=== PATIENT | female | born 1940 | race Caucasian/White ===

== ENCOUNTER → 2020-04-24 | Outpatient (CLI) | payer OTHER ==
[~2020-04-24] MED LIST: ACET650S3 PR; ALLO100T PO; ARIM1TAB5 PO; AROM25TA PO; ASPI81CH49 PO; BACT800T5 PO; BENA25CA4 PO; CALCCAP4 PO; CALCD50TA; CALCTAB28 PO; CELE1CAP9 PO; CETI10CH PO; FAMO40TA3 PO; FURO40TA2 PO; HYDR50TA70 PO; IBRA125C PO; IBUP200T45 PO; KISQ1PAK3 PO; LEVO88TA24 PO; LORT5TAB PO; MAGN400C2 PO; MAGN400T3 PO; PALB125T PO; POTA1TAB14 PO; PRED20TA PO; PRED5PAK PO; RANI-397 PO; SELE200C PO; SELE200T15 PO; SM LTAB5 PO; TAMO20TA8 PO; VITA-199 PO; XARE20TA PO
== END ==
LOC: M ONCR 10:29
PROVIDERS: ATTEND General Practice
DX: C79.2 Secondary malignant neoplasm of skin (principal); C50.911 Malignant neoplasm of unspecified site of right female breast

== ENCOUNTER → 2020-07-30 | Outpatient (CLI) | payer OTHER ==
[~2020-07-30] MED LIST changes: +CYAN500T14 PO; +FAMO20TA PO; +LIDOCAINE 1% MDV 20ML VIAL As Ordered ONE; +MIDAZOLAM INJ 2MG/2ML VIAL (J2250 PER 1MG) As Ordered ONE; +ONDA8TAB10 PO; +PROC10TA4 PO; +ceFAZolin 1GM VIAL (J0690 PER 500MG) As Ordered ONE; +diphenhydrAMINE 50MG/ML VIAL (J1200) As Ordered ONE; +fentaNYL 100 MCG/2 ML INJECTION (J3010) As Ordered ONE
--- NOTE | 2020-07-30 12:31 | IRHP ---
[facility] IR Pre-Procedure H & P General Date of Service: Jul 28, 2020 Procedure: Same Day Surgery Interval History and Physical I have seen the patient and reviewed last H & P performed within 30 days. There is no significant interval change. History of Present Illness Chief Complaint The patient is a 80-year-old female admitted with a reason for visit of Metastatic Breast Ca. PRE-PROCEDURE DIAGNOSIS: right sided breast cancer HEART: normal rate. LUNGS: normal breathing at rest. ASA Classification ASA Classification: III-Severe systemic dis. Mallampati Score: II NPO: Yes Problems with prior sedation: No Obstructive Sleep Apnea: No Plan moderate sedation Allergies Coded Allergies: Quinolones (Verified Allergy, Unknown, 01/28/19) cefadroxil (Verified Allergy, Unknown, 01/28/19) codeine (Verified Allergy, Unknown, 01/28/19) nitrofurantoin (Verified Allergy, Unknown, 01/28/19) Home Medications Scheduled Cyanocobalamin (Vitamin B-12) (Vitamin B-12), 1,000 MCG PO DAILY, (Reported) Famotidine (Famotidine), 20 MG PO PRN, (Reported) Ibuprofen (Ibu-200), 400 MG PO DAILYPRN, (Reported) Levothyroxine Sodium (Levoxyl), 88 MCG PO DAILY, (Reported) Magnesium Oxide (Magnesium), 400 MG PO DAILY, (Reported) Potassium Chloride (Potassium Chloride), 20 MEQ PO DAILY, (Reported) Rivaroxaban (Xarelto), 20 MG PO QPM, (Reported) Scheduled PRN Furosemide (Furosemide), 1 TAB PO DAILY PRN for NEEDED, (Reported) Miscellaneous Medications Calcium Carbonate/Vitamin D3 (Calcium 600 + Vit D 400 Softgl), 1 CAP PO, (Reported) Discontinued Medications Cetirizine HCl (Cetirizine HCl), 1 TAB PO BID, (Reported) Discontinued Reason: Pt states not taking Famotidine (Famotidine), 40 MG PO BID, (Reported) Discontinued Reason: Re-entering as new Hydroxyzine HCl (Hydroxyzine HCl), 1 TAB PO Q4HP, (Reported) Discontinued Reason: Pt states not taking Loratadine (Loratadine), 1 TAB PO DAILY, (Reported) Discontinued Reason: Pt states not taking Magnesium Oxide (Magnesium Oxide), 1 TAB PO DAILY, (Reported) Discontinued Reason: Pt states not taking Ondansetron HCl (Ondansetron HCl), 8 MG PO Q8H PRN for NAUSEA OR VOMITING Discontinued Reason: Pt states not taking Prochlorperazine Maleate (Prochlorperazine Maleate), 10 MG PO Q8H PRN for NAUSEA OR VOMITING Discontinued Reason: Pt states not taking KASEY CASTANO MD Jul 30, 2020 12:31
[2020-07-30 14:25] VITALS: BP 132/70
--- NOTE | 2020-07-31 12:15 | POST-OPPD ---
Postoperative Procedure Note Date Of Procedure: Jul 30, 2020 Time Of Procedure: 16:00 IR ultrasound and fluoroscopy guided port placement. IR Ultrasound of the neck. IR Moderate sedation. Clinical indication: Right-sided breast cancer and prior right axillary dissection. Physician: Dr. Richmond. Procedure: The patient was advised of the benefits, risks, and alternatives of the procedure and informed consent was obtained. A time-out was performed with verification of the patient's name, MRN, site of procedure and type of procedure to be performed. The patient was positioned in the supine position on the angiographic table. The site was prepped and draped in the usual sterile fashion. Moderate sedation was performed by the physician including the presence of an independent trained RN who assisted and monitored the patient's level of consciousness and physiologic status. Following the administration of fentanyl and Versed , the physician spent 45 minutes of continuous face to face time with the patient. Ultrasound of the left neck reveals a small internal jugular vein. A pilot boat operator radiograph reveals no gross abnormality. The neck and anterior chest wall were anesthetized with lidocaine. The left internal jugular vein was accessed using a microintroducer needle under ultrasound guidance, via a lateral approach. An 018 wire could not be advanced centrally. The left internal jugular vein could not be cannulated. The procedure was aborted. As patient had right sided breast cancer with axillary surgery, right sided port is not an option. The patient tolerated the procedure well and was returned to the PRU in stable condition. Estimated blood loss: <5 ml. Complications: None. Conclusion: 1. Ultrasound left neck demonstrates small left internal jugular vein. 2. Unsuccessful left internal jugular vein canalization for port placement. 3. Right-sided port is not an option due to prior right sided breast cancer and axillary surgery. Therefore I have referred the patient for a left arm PICC line for treatment.. Thank you for this referral. Cc KASEY Sky MD Jul 31, 2020 12:15
== END ==
LOC: M IRPRO 11:24
PROVIDERS: ATTEND Radiology Diagnostic Radiology
DX: C50.911 Malignant neoplasm of unspecified site of right female breast (principal)
CPT/HCPCS: 36561; 99152; 99153; C1769; C1894; J0690; J1642; J1644; J2250; J3010

== ENCOUNTER → 2020-07-31 | Outpatient (CLI) | payer OTHER ==
[~2020-07-31] MED LIST changes: -MIDAZOLAM INJ 2MG/2ML VIAL (J2250 PER 1MG) As Ordered ONE; -ceFAZolin 1GM VIAL (J0690 PER 500MG) As Ordered ONE; -diphenhydrAMINE 50MG/ML VIAL (J1200) As Ordered ONE; -fentaNYL 100 MCG/2 ML INJECTION (J3010) As Ordered ONE
[2020-07-31 12:40] VITALS: BP 149/68
--- NOTE | 2020-07-31 14:44 | REP ---
PROCEDURE NAME: PICC LINE INSERTION W/SITERITE CLINICAL INFORMATION: NO VENOUS ACCESS PICC LINES. COMPARISON: None. PROCEDURE DESCRIPTION: The procedure was performed by FAITH Gentile, under the direct supervision of Dr. Sandhu. The risks and benefits of the procedure were explained to the patient and an informed consent was obtained both verbally and written. Directly prior to the start of the procedure a formal time-out was completed in the procedure room. The left basilic vein was localized using ultrasound guidance. The skin was prepped and draped in sterile fashion. Two mL of 1% lidocaine 10 mg/mL was used as a local anesthetic. Using ultrasound guidance the left basilic vein was cannulated, and a 0.018 guidewire was inserted and advanced to the level of SVC using fluoroscopic guidance. The needle was removed and a 5.5 Cypriot dilator and peel-away sheath was inserted over the guidewire. A 5.5 Cypriot dual lumen catheter was cut to a length of 45 cm. The dilator was removed and the catheter was inserted over the guidewire with the tip ending at the level of the SVC. The peel-away sheath was removed and the catheter was flushed with heparinized saline as per hospital protocol. The catheter was affixed to the skin and a sterile dressing was applied. The patient tolerated the procedure well and there were no immediate complications. CONCLUSION: PICC line insertion into the left basilic vein. 0.1 minutes of fluoroscopy time was utilized for this procedure. Some fluoroscopic images are performed with last image hold technology. These images require no additional radiation. <Electronically signed by Fouzia Collins > 07/31/20 1436 <Electronically signed by Mesfin Sandhu > 07/31/20 1449
== END ==
LOC: M IRPRO 11:26
PROVIDERS: ATTEND Specialist
DX: C50.411 Malignant neoplasm of upper-outer quadrant of right female breast (principal); C79.2 Secondary malignant neoplasm of skin
CPT/HCPCS: 36571; 76937; C1751; J1642; J1644

== ENCOUNTER → 2020-08-03 | Outpatient (CLI) | payer OTHER ==
[~2020-08-03] MED LIST changes: -LIDOCAINE 1% MDV 20ML VIAL As Ordered ONE
[2020-08-03 13:32] VITALS: BP 175/100
== END ==
LOC: M IRPRO 13:30
PROVIDERS: ATTEND Specialist
DX: C50.919 Malignant neoplasm of unspecified site of unspecified female breast (principal)

== ENCOUNTER → 2021-11-16 | Outpatient (CLI) | payer BC ==
[~2021-11-16] MED LIST changes: +B-12100021 PO; +CO Q100C PO; +D 50CAP2 PO; +GABA-282; +HYDR-4571 PO; -IBUP200T45 PO; +IBUP200T46 PO; +LEVO75TA4 PO; +MAGN400T2 PO; -MAGN400T3 PO; +MAGN400T33 PO; +ONDA-83; +ONDA-84 PO; -ONDA8TAB10 PO; -PROC10TA4 PO; +PROC10TA5 PO; +[UNRECOGNIZED DRUG - OTHER] PO
== END ==
LOC: M ONCR 14:44
PROVIDERS: ATTEND General Practice
DX: C79.2 Secondary malignant neoplasm of skin (principal); C79.51 Secondary malignant neoplasm of bone; Z85.3 Personal history of malignant neoplasm of breast; Z88.1 Allergy status to other antibiotic agents; Z88.5 Allergy status to narcotic agent; Z88.8 Allergy status to other drugs, medicaments and biological substances

== ENCOUNTER 2021-11-19 13:56 | Outpatient (RCR) | payer BC | END 2021-11-25 | LOC: M ONCR 13:56 | PROVIDERS: ATTEND General Practice | DX: C79.51 Secondary malignant neoplasm of bone (principal); C79.2 Secondary malignant neoplasm of skin ==

== ENCOUNTER 2021-12-13 10:56 | Outpatient (RCR) | payer BC ==
[~2021-12-13 10:56] MED LIST changes: +CIPR-250 PO
[2021-12-28] MEDS ORDERED: TRIA1CR80 TOP (15:10)
== END 2021-12-25 ==
LOC: M ONCR 10:56
PROVIDERS: ATTEND General Practice
DX: C79.51 Secondary malignant neoplasm of bone (principal)

== ENCOUNTER → 2022-01-04 | Outpatient (CLI) | payer BC ==
[~2022-01-04] MED LIST changes: +EXEM25TA; +OXYC-517; +TRIA1CR80 TOP
== END ==
LOC: M ONCR 12:56
PROVIDERS: ATTEND General Practice
DX: C79.2 Secondary malignant neoplasm of skin (principal); L59.9 Disorder of the skin and subcutaneous tissue related to radiation, unspecified; Z92.3 Personal history of irradiation

== ENCOUNTER → 2022-01-11 | Outpatient (CLI) | payer BC | LOC: M ONCR 13:26 | PROVIDERS: ATTEND General Practice | DX: C79.2 Secondary malignant neoplasm of skin (principal) ==

== ENCOUNTER → 2022-01-25 | Outpatient (CLI) | payer BC ==
[~2022-01-25] MED LIST changes: -EXEM25TA; -OXYC-517
== END ==
LOC: M ONCR 13:11
PROVIDERS: ATTEND General Practice
DX: Z08 Encounter for follow-up examination after completed treatment for malignant neoplasm (principal); L76.82 Other postprocedural complications of skin and subcutaneous tissue; Z90.11 Acquired absence of right breast and nipple; Z92.3 Personal history of irradiation

== ENCOUNTER → 2022-02-08 | Outpatient (CLI) | payer BC | LOC: M ONCR 13:11 | PROVIDERS: ATTEND General Practice | DX: C79.51 Secondary malignant neoplasm of bone (principal); C79.2 Secondary malignant neoplasm of skin; L59.8 Other specified disorders of the skin and subcutaneous tissue related to radiation; Z92.3 Personal history of irradiation ==

== ENCOUNTER 2022-02-15 08:11 | Outpatient (RCR) | payer BC ==
[2022-02-23] MEDS ORDERED: EXEM25TA (13:28)
[2022-02-23] MEDS ORDERED: OXYC-517 (13:28)
== END 2022-02-24 ==
LOC: M ONCR 08:11
PROVIDERS: ATTEND General Practice
DX: C79.2 Secondary malignant neoplasm of skin (principal); C50.911 Malignant neoplasm of unspecified site of right female breast; Z79.899 Other long term (current) drug therapy; Z79.890 Hormone replacement therapy; Z88.8 Allergy status to other drugs, medicaments and biological substances; Z88.1 Allergy status to other antibiotic agents; Z88.5 Allergy status to narcotic agent; Z90.13 Acquired absence of bilateral breasts and nipples; Z98.890 Other specified postprocedural states

== ENCOUNTER 2022-03-16 09:35 | Outpatient (RCR) | payer BC ==
[~2022-03-16 09:35] MED LIST changes: +EXEM25TA; +OXYC-517
== END 2022-03-27 ==
LOC: M ONCR 09:35
PROVIDERS: ATTEND General Practice
DX: C79.2 Secondary malignant neoplasm of skin (principal); C79.51 Secondary malignant neoplasm of bone

== ENCOUNTER → 2022-04-01 | Outpatient (CLI) | payer BC ==
[~2022-04-01] MED LIST changes: +MIRT-62 PO; +ZOLP5TAB PO
== END ==
LOC: M ONCR 09:54
PROVIDERS: ATTEND General Practice
DX: L59.8 Other specified disorders of the skin and subcutaneous tissue related to radiation (principal)

== ENCOUNTER → 2022-05-03 | Outpatient (CLI) | payer BC ==
[~2022-05-03] MED LIST changes: +EXEM25TA PO
== END ==
LOC: M ONCR 10:44
PROVIDERS: ATTEND General Practice
DX: L59.8 Other specified disorders of the skin and subcutaneous tissue related to radiation (principal); R10.11 Right upper quadrant pain

== ENCOUNTER 2022-06-01 13:27 | Outpatient (CLI) | payer BC ==
[2022-06-01] MEDS ORDERED: SODIUM CHLORIDE 0.9% 1000ML IV ONE (14:35)
[2022-06-15] MEDS ORDERED: IBUP-1114 PO (13:39)
== END 2022-06-01 15:00 | disposition home or self-care (01) ==
LOC: M INFU 13:27
PROVIDERS: ATTEND Specialist
DX: C50.919 Malignant neoplasm of unspecified site of unspecified female breast (principal); Z88.1 Allergy status to other antibiotic agents; Z88.5 Allergy status to narcotic agent; Z88.8 Allergy status to other drugs, medicaments and biological substances
CPT/HCPCS: 96360; G0463

== ENCOUNTER 2022-06-28 10:17 | Inpatient (IN) | payer MEDICARE, BC ==
[~2022-06-28] VITALS: Ht 157.5 cm; Wt 84.3 kg
[~2022-06-28 10:17] MED LIST changes: -LEVO25TA5 PO
[2022-06-28 13:02] LABS: BASO # 0.1 10^3/uL (0.0-0.2); BASO % 1.1 % (0.0-1.0); EOS # 0.1 10^3/uL (0.0-0.5); EOS % 1.1 % (0.0-3.0); HEMATOCRIT 40.1 % (36.0-47.0); HEMOGLOBIN 13.1 g/dl (12.0-15.5); LYMPH # 1.4 10^3/uL (1.5-5.0); LYMPH % 22.1 % (24.0-44.0); MEAN CORPUSCULAR HEMOGLOBIN 32.2 pg (27.0-33.0); MEAN CORPUSCULAR HGB CONC 32.7 g/dl (32.0-36.5); MEAN CORPUSCULAR VOLUME 98.5 fl (80.0-96.0); MONO # 0.9 10^3/uL (0.0-0.8); MONO % 14.2 % (2.0-8.0); NEUTROPHILS # 3.6 10^3/uL (1.5-8.5); NEUTROPHILS % 57.7 % (36.0-66.0); PLATELET COUNT, AUTOMATED 152 10^3/uL (150-450); RED BLOOD COUNT 4.07 10^6/uL (4.00-5.40); WHITE BLOOD COUNT 6.3 10^3/uL (4.0-10.0)
[2022-06-28 13:37] LABS: ALBUMIN 3.8 GM/DL (3.2-5.2); BILIRUBIN,TOTAL 0.8 MG/DL (0.2-1.0); CALCIUM LEVEL 14.4 MG/DL (8.8-10.2); CREATININE FOR GFR 1.04 MG/DL (0.55-1.30); GLOMERULAR FILTRATION RATE 53.9 (>32); POTASSIUM SERUM 4.5 MEQ/L (3.5-5.1); TOTAL PROTEIN 7.4 GM/DL (6.4-8.2)
[2022-06-28] MEDS ORDERED: ONDANSETRON 4MG 2ML VIAL IV ONE (14:20)
[2022-06-28] MEDS ORDERED: MORPHINE 2 MG/ML 1ML VIAL IV ONE (14:20)
[2022-06-28] MEDS ORDERED: NS 1,000 ML IV ONE (14:20)
[2022-06-28] MEDS ORDERED: EXEM25TA PO (15:15)
[2022-06-28] MEDS ORDERED: HOME MED LIST COMPLETE! XX SCH ×2 (15:20→16:10)
[2022-06-28] MEDS ORDERED: LEVO25TA5 PO (16:07)
[2022-06-28 17:44] LABS: RSV AMPLIFICATION NEGATIVE (NEGATIVE)
[2022-06-28] MEDS ORDERED: ZOLEDRONIC ACID 4 MG in IV 1 EA IV ONE (18:00)
[2022-06-28 18:21] VITALS: BP 130/71
[2022-06-28] MEDS: MORPHINE 2 MG/ML 1ML VIAL IV PRN (18:29)
[2022-06-28] MEDS: NS 1,000 ML IV SCH (18:39)
[2022-06-28 19:44] VITALS: BP 145/70
[2022-06-28] MEDS: NORCO, ANEXSIA 5/325MG TABLET (HYDROcodone/ACETAMINOPHEN) PO PRN (21:09)
[2022-06-28 23:50] VITALS: BP 129/66
[2022-06-29] MEDS: MORPHINE 2 MG/ML 1ML VIAL IV PRN ×2 (01:25→22:21)
[2022-06-29 04:03] VITALS: BP 112/58
[2022-06-29] MEDS: NS 1,000 ML IV SCH ×4 (04:03→21:33)
[2022-06-29 05:57] LABS: HEMATOCRIT 31.7 % (36.0-47.0); MEAN CORPUSCULAR HGB CONC 32.5 g/dl (32.0-36.5); MEAN CORPUSCULAR VOLUME 98.4 fl (80.0-96.0); PLATELET COUNT, AUTOMATED 125 10^3/uL (150-450); RED BLOOD COUNT 3.22 10^6/uL (4.00-5.40); WHITE BLOOD COUNT 4.2 10^3/uL (4.0-10.0)
[2022-06-29 06:02] LABS: HEMOGLOBIN 10.3 g/dl (12.0-15.5)
[2022-06-29] MEDS ORDERED: FAMOTIDINE 20 MG TAB PO PRN (06:10)
[2022-06-29 06:29] LABS: BLOOD UREA NITROGEN 9 MG/DL (7-18); CALCIUM LEVEL 12.4 MG/DL (8.8-10.2); CARBON DIOXIDE LEVEL 25 MEQ/L (21-32); CHLORIDE LEVEL 105 MEQ/L (98-107); CREATININE FOR GFR 0.88 MG/DL (0.55-1.30); GLOMERULAR FILTRATION RATE > 60.0 (>32); GLUCOSE, FASTING 83 MG/DL (70-100); MAGNESIUM LEVEL 1.1 MG/DL (1.8-2.4); POTASSIUM SERUM 3.8 MEQ/L (3.5-5.1); SODIUM LEVEL 138 MEQ/L (136-145)
[2022-06-29] MEDS: LEVOTHYROXINE 50MCG TABLET (0.05MG) PO SCH (06:31)
[2022-06-29] MEDS ORDERED: FUROSEMIDE 40 MG TAB PO PRN (07:10)
[2022-06-29 07:35] VITALS: BP 119/62
[2022-06-29] MEDS: MAG SULF 1GM/100ML (MAG RUN) 1 GM in IV 1 EA IV SCH ×2 (08:21→09:17)
[2022-06-29] MEDS ORDERED: SENNA 8.6 MG TAB (SENOKOT) PO PRN (08:25)
[2022-06-29] MEDS: POTASSIUM CHLORIDE 10MEQ SR TABLET PO SCH (09:18)
[2022-06-29] MEDS ORDERED: FUROSEMIDE 40 MG TAB PO ONE (10:30)
[2022-06-29] MEDS ORDERED: MAG SULF 1GM/100ML (MAG RUN) 1 GM in IV 1 EA IV ONE (11:00)
[2022-06-29] MEDS ORDERED: FLUBLOK(EGG FREE)(QUAD)INFLUENZA VACC 0.5ML SYRINGE 18YRS & OLDER IM.IMMUN ONE (12:00)
[2022-06-29 12:35] VITALS: BP 119/70
[2022-06-29] MEDS: NORCO, ANEXSIA 5/325MG TABLET (HYDROcodone/ACETAMINOPHEN) PO PRN (12:48)
[2022-06-29 16:20] VITALS: BP 133/68
[2022-06-29] MEDS ORDERED: MORPHINE 2 MG/ML 1ML VIAL IV ONE (17:20)
[2022-06-29] MEDS: LIDOCAINE 5% (LIDODERM) PATCH TD PRN (17:30)
[2022-06-29] MEDS: RIVAROXABAN 20MG TAB (XARELTO) PO SCH (17:31)
[2022-06-29 20:00] VITALS: BP 126/79
[2022-06-29] MEDS ORDERED: MORPHINE SULFATE ORAL SOLN 10 MG/5 ML UD PO PRN (23:30)
[2022-06-30] VITALS (8 sets, daily range): BP systolic 121–165; BP diastolic 59–101
[2022-06-30] MEDS: NS 1,000 ML IV SCH ×3 (04:58→17:18)
[2022-06-30] MEDS: LEVOTHYROXINE 50MCG TABLET (0.05MG) PO SCH (05:13)
[2022-06-30] MEDS: MORPHINE 2 MG/ML 1ML VIAL IV PRN ×2 (05:17→10:11)
[2022-06-30 05:41] LABS: HEMATOCRIT 32.3 % (36.0-47.0); HEMOGLOBIN 10.5 g/dl (12.0-15.5); MEAN CORPUSCULAR HEMOGLOBIN 32.5 pg (27.0-33.0); MEAN CORPUSCULAR HGB CONC 32.5 g/dl (32.0-36.5); PLATELET COUNT, AUTOMATED 122 10^3/uL (150-450); RED BLOOD COUNT 3.23 10^6/uL (4.00-5.40); WHITE BLOOD COUNT 5.3 10^3/uL (4.0-10.0)
[2022-06-30 06:10] LABS: BLOOD UREA NITROGEN 7 MG/DL (7-18); CALCIUM LEVEL 10.7 MG/DL (8.8-10.2); CARBON DIOXIDE LEVEL 24 MEQ/L (21-32); CHLORIDE LEVEL 105 MEQ/L (98-107); CREATININE FOR GFR 0.85 MG/DL (0.55-1.30); GLOMERULAR FILTRATION RATE > 60.0 (>32); GLUCOSE, FASTING 91 MG/DL (70-100); MAGNESIUM LEVEL 1.3 MG/DL (1.8-2.4); POTASSIUM SERUM 3.8 MEQ/L (3.5-5.1); SODIUM LEVEL 138 MEQ/L (136-145)
[2022-06-30] MEDS: MAG SULF 1GM/100ML (MAG RUN) 1 GM in IV 1 EA IV SCH ×2 (08:52→10:07)
[2022-06-30] MEDS: POTASSIUM CHLORIDE 10MEQ SR TABLET PO SCH (08:52)
[2022-06-30] MEDS: LIDOCAINE 5% (LIDODERM) PATCH TD PRN (13:46)
[2022-06-30] MEDS: RIVAROXABAN 20MG TAB (XARELTO) PO SCH (17:18)
[2022-06-30 17:22] LABS: CK-MB VALUE MASS < 1.0 NG/ML (<3.6); CPK CREATINE PHOSPHOKINASE 50 U/L (26-192)
[2022-06-30 20:49] LABS: CK-MB VALUE MASS < 1.0 NG/ML (<3.6); CPK CREATINE PHOSPHOKINASE 61 U/L (26-192); MB/CK RELATIVE INDEX 1.64 (< OR =4)
[2022-07-01] VITALS: BP 124/59
[2022-07-01] MEDS: NS 1,000 ML IV SCH ×2 (00:40→07:32)
[2022-07-01 04:00] VITALS: BP 140/68
[2022-07-01] MEDS: LEVOTHYROXINE 50MCG TABLET (0.05MG) PO SCH (05:47)
[2022-07-01 06:14] LABS: HEMATOCRIT 29.4 % (36.0-47.0); HEMOGLOBIN 9.8 g/dl (12.0-15.5); MEAN CORPUSCULAR HEMOGLOBIN 32.2 pg (27.0-33.0); MEAN CORPUSCULAR HGB CONC 33.3 g/dl (32.0-36.5); MEAN CORPUSCULAR VOLUME 96.7 fl (80.0-96.0); PLATELET COUNT, AUTOMATED 113 10^3/uL (150-450); RED BLOOD COUNT 3.04 10^6/uL (4.00-5.40)
[2022-07-01 06:43] LABS: BLOOD UREA NITROGEN 7 MG/DL (7-18); CALCIUM LEVEL 8.9 MG/DL (8.8-10.2); CARBON DIOXIDE LEVEL 23 MEQ/L (21-32); CHLORIDE LEVEL 111 MEQ/L (98-107); CREATININE FOR GFR 0.66 MG/DL (0.55-1.30); GLOMERULAR FILTRATION RATE > 60.0 (>32); GLUCOSE, FASTING 101 MG/DL (70-100); MAGNESIUM LEVEL 1.3 MG/DL (1.8-2.4); POTASSIUM SERUM 3.7 MEQ/L (3.5-5.1); SODIUM LEVEL 141 MEQ/L (136-145)
[2022-07-01 07:27] VITALS: BP 137/66
[2022-07-01] MEDS: POTASSIUM CHLORIDE 10MEQ SR TABLET PO SCH (08:18)
[2022-07-01] MEDS: MAG SULF 1GM/100ML (MAG RUN) 1 GM in IV 1 EA IV SCH ×2 (08:19→09:44)
[2022-07-01] MEDS: MORPHINE 2 MG/ML 1ML VIAL IV PRN ×3 (09:44→20:57)
[2022-07-01] MEDS ORDERED: FUROSEMIDE 40 MG TAB PO ONE (11:15)
[2022-07-01 11:31] VITALS: BP 134/85
[2022-07-01 15:36] VITALS: BP 136/87
[2022-07-01] MEDS: RIVAROXABAN 20MG TAB (XARELTO) PO SCH (17:32)
[2022-07-01 20:00] VITALS: BP 149/80
[2022-07-02] MEDS: MORPHINE 2 MG/ML 1ML VIAL IV PRN ×2 (00:59→09:55)
[2022-07-02 04:00] VITALS: BP 145/76
[2022-07-02] MEDS: LEVOTHYROXINE 50MCG TABLET (0.05MG) PO SCH (05:12)
[2022-07-02 05:53] LABS: HEMATOCRIT 33.1 % (36.0-47.0); HEMOGLOBIN 11.2 g/dl (12.0-15.5); MEAN CORPUSCULAR HEMOGLOBIN 32.5 pg (27.0-33.0); MEAN CORPUSCULAR HGB CONC 33.8 g/dl (32.0-36.5); MEAN CORPUSCULAR VOLUME 95.9 fl (80.0-96.0); PLATELET COUNT, AUTOMATED 125 10^3/uL (150-450); RED BLOOD COUNT 3.45 10^6/uL (4.00-5.40); WHITE BLOOD COUNT 5.1 10^3/uL (4.0-10.0)
[2022-07-02 06:28] LABS: BLOOD UREA NITROGEN 6 MG/DL (7-18); CALCIUM LEVEL 9.2 MG/DL (8.8-10.2); CARBON DIOXIDE LEVEL 23 MEQ/L (21-32); CHLORIDE LEVEL 106 MEQ/L (98-107); CREATININE FOR GFR 0.74 MG/DL (0.55-1.30); GLOMERULAR FILTRATION RATE > 60.0 (>32); GLUCOSE, FASTING 105 MG/DL (70-100); MAGNESIUM LEVEL 1.5 MG/DL (1.8-2.4); POTASSIUM SERUM 3.6 MEQ/L (3.5-5.1); SODIUM LEVEL 139 MEQ/L (136-145)
[2022-07-02] MEDS ORDERED: MAG SULF 1GM/100ML (MAG RUN) 1 GM in IV 1 EA IV ONE (08:00)
[2022-07-02 08:06] VITALS: BP 150/78
[2022-07-02] MEDS ORDERED: ONDANSETRON 4MG 2ML VIAL IV PRN (08:30)
[2022-07-02] MEDS: POTASSIUM CHLORIDE 10MEQ SR TABLET PO SCH (08:41)
[2022-07-02 11:53] VITALS: BP 146/73
[2022-07-02] MEDS: MORPHINE SULFATE ORAL SOLN 10 MG/5 ML UD PO PRN ×2 (14:23→21:56)
[2022-07-02] MEDS ORDERED: ONDANSETRON 4MG TAB PO PRN (16:00)
[2022-07-02] MEDS ORDERED: MAGNESIUM OXIDE 400MG TAB (MAG-OX) PO ONE (17:00)
[2022-07-02] MEDS: RIVAROXABAN 20MG TAB (XARELTO) PO SCH (17:30)
[2022-07-02 20:00] VITALS: BP 133/89
[2022-07-03] MEDS: RAMELTEON 8 MG TAB (ROZEREM) PO PRN ×2 (01:52→21:44)
[2022-07-03] MEDS: ACETAMINOPHEN TAB 650MG DOSE (2X325MG) PO PRN ×2 (01:53→17:26)
[2022-07-03] MEDS: LEVOTHYROXINE 50MCG TABLET (0.05MG) PO SCH (05:31)
[2022-07-03 05:33] LABS: HEMATOCRIT 30.6 % (36.0-47.0); HEMOGLOBIN 10.3 g/dl (12.0-15.5); MEAN CORPUSCULAR HEMOGLOBIN 32.5 pg (27.0-33.0); MEAN CORPUSCULAR HGB CONC 33.7 g/dl (32.0-36.5); MEAN CORPUSCULAR VOLUME 96.5 fl (80.0-96.0); PLATELET COUNT, AUTOMATED 121 10^3/uL (150-450); RED BLOOD COUNT 3.17 10^6/uL (4.00-5.40); WHITE BLOOD COUNT 4.9 10^3/uL (4.0-10.0)
[2022-07-03] MEDS: LIDOCAINE 5% (LIDODERM) PATCH TD PRN (05:34)
[2022-07-03 06:19] LABS: BLOOD UREA NITROGEN 6 MG/DL (7-18); CALCIUM LEVEL 8.6 MG/DL (8.8-10.2); CARBON DIOXIDE LEVEL 23 MEQ/L (21-32); CHLORIDE LEVEL 108 MEQ/L (98-107); CREATININE FOR GFR 0.72 MG/DL (0.55-1.30); GLOMERULAR FILTRATION RATE > 60.0 (>32); GLUCOSE, FASTING 91 MG/DL (70-100); MAGNESIUM LEVEL 1.6 MG/DL (1.8-2.4); POTASSIUM SERUM 3.9 MEQ/L (3.5-5.1); SODIUM LEVEL 139 MEQ/L (136-145)
[2022-07-03] MEDS: POTASSIUM CHLORIDE 10MEQ SR TABLET PO SCH (08:48)
[2022-07-03] MEDS: MORPHINE SULFATE ORAL SOLN 10 MG/5 ML UD PO PRN ×2 (13:49→21:44)
[2022-07-03] MEDS: RIVAROXABAN 20MG TAB (XARELTO) PO SCH (17:26)
[2022-07-03 20:00] VITALS: BP 154/68
[2022-07-04] MEDS: LEVOTHYROXINE 50MCG TABLET (0.05MG) PO SCH (05:45)
[2022-07-04 06:16] LABS: HEMATOCRIT 32.2 % (36.0-47.0); HEMOGLOBIN 10.7 g/dl (12.0-15.5); MEAN CORPUSCULAR HGB CONC 33.2 g/dl (32.0-36.5); MEAN CORPUSCULAR VOLUME 96.4 fl (80.0-96.0); PLATELET COUNT, AUTOMATED 134 10^3/uL (150-450); RED BLOOD COUNT 3.34 10^6/uL (4.00-5.40); WHITE BLOOD COUNT 6.2 10^3/uL (4.0-10.0)
[2022-07-04 07:13] LABS: BLOOD UREA NITROGEN 7 MG/DL (7-18); CALCIUM LEVEL 8.7 MG/DL (8.8-10.2); CARBON DIOXIDE LEVEL 22 MEQ/L (21-32); CHLORIDE LEVEL 106 MEQ/L (98-107); CREATININE FOR GFR 0.71 MG/DL (0.55-1.30); GLOMERULAR FILTRATION RATE > 60.0 (>32); GLUCOSE, FASTING 103 MG/DL (70-100); MAGNESIUM LEVEL 1.5 MG/DL (1.8-2.4); POTASSIUM SERUM 4.2 MEQ/L (3.5-5.1); SODIUM LEVEL 136 MEQ/L (136-145)
[2022-07-04 08:00] VITALS: BP 141/81
[2022-07-04] MEDS: POTASSIUM CHLORIDE 10MEQ SR TABLET PO SCH (09:47)
[2022-07-04] MEDS: LIDOCAINE 5% (LIDODERM) PATCH TD PRN (09:48)
[2022-07-04] MEDS: MORPHINE SULFATE ORAL SOLN 10 MG/5 ML UD PO PRN ×2 (14:49→23:32)
[2022-07-04 16:00] VITALS: BP 133/88
[2022-07-04] MEDS: RIVAROXABAN 20MG TAB (XARELTO) PO SCH (17:20)
[2022-07-04] MEDS: ACETAMINOPHEN TAB 650MG DOSE (2X325MG) PO PRN (21:34)
[2022-07-05] MEDS: ACETAMINOPHEN TAB 650MG DOSE (2X325MG) PO PRN (05:23)
[2022-07-05] MEDS: LEVOTHYROXINE 50MCG TABLET (0.05MG) PO SCH (05:23)
[2022-07-05 06:00] VITALS: BP 150/79
[2022-07-05 06:20] LABS: HEMATOCRIT 31.2 % (36.0-47.0); HEMOGLOBIN 10.5 g/dl (12.0-15.5); MEAN CORPUSCULAR HEMOGLOBIN 32.5 pg (27.0-33.0); MEAN CORPUSCULAR HGB CONC 33.7 g/dl (32.0-36.5); MEAN CORPUSCULAR VOLUME 96.6 fl (80.0-96.0); PLATELET COUNT, AUTOMATED 120 10^3/uL (150-450); RED BLOOD COUNT 3.23 10^6/uL (4.00-5.40); WHITE BLOOD COUNT 5.6 10^3/uL (4.0-10.0)
[2022-07-05 07:19] LABS: BLOOD UREA NITROGEN 6 MG/DL (7-18); CALCIUM LEVEL 8.1 MG/DL (8.8-10.2); CARBON DIOXIDE LEVEL 24 MEQ/L (21-32); CHLORIDE LEVEL 106 MEQ/L (98-107); CREATININE FOR GFR 0.63 MG/DL (0.55-1.30); GLOMERULAR FILTRATION RATE > 60.0 (>32); GLUCOSE, FASTING 85 MG/DL (70-100); MAGNESIUM LEVEL 1.5 MG/DL (1.8-2.4); POTASSIUM SERUM 3.9 MEQ/L (3.5-5.1); SODIUM LEVEL 140 MEQ/L (136-145)
[2022-07-05] MEDS: POTASSIUM CHLORIDE 10MEQ SR TABLET PO SCH (08:58)
[2022-07-05] MEDS: MORPHINE SULFATE ORAL SOLN 10 MG/5 ML UD PO PRN ×2 (12:55→21:13)
[2022-07-05] MEDS: RIVAROXABAN 20MG TAB (XARELTO) PO SCH (17:08)
[2022-07-06] MEDS ORDERED: LOPERAMIDE 2 MG CAPLET PO PRN (02:10)
[2022-07-06] MEDS: LEVOTHYROXINE 50MCG TABLET (0.05MG) PO SCH (05:04)
[2022-07-06] MEDS: MORPHINE SULFATE ORAL SOLN 10 MG/5 ML UD PO PRN (05:05)
[2022-07-06 05:06] VITALS: BP 152/82
[2022-07-06] MEDS ORDERED: MORPHINE SULFATE ORAL SOLN 10 MG/5 ML UD PO PRN (08:25)
[2022-07-06] MEDS: POTASSIUM CHLORIDE 10MEQ SR TABLET PO SCH (08:43)
[2022-07-06] MEDS: ACETAMINOPHEN TAB 650MG DOSE (2X325MG) PO PRN ×2 (11:40→20:34)
[2022-07-06] MEDS ORDERED: MORPHINE 2 MG/ML 1ML VIAL IV PRN (13:05)
[2022-07-06] MEDS: MAGNESIUM OXIDE 400MG TAB (MAG-OX) PO SCH ×2 (14:21→20:34)
[2022-07-06] MEDS: RIVAROXABAN 20MG TAB (XARELTO) PO SCH (17:33)
[2022-07-06 20:06] VITALS: BP 154/79
[2022-07-07] MEDS: ACETAMINOPHEN TAB 650MG DOSE (2X325MG) PO PRN (03:13)
[2022-07-07] MEDS: LEVOTHYROXINE 50MCG TABLET (0.05MG) PO SCH (05:17)
[2022-07-07 05:18] VITALS: BP 147/97
[2022-07-07] MEDS ORDERED: PERCOCET 5MG/325MG TAB PO PRN (05:25)
[2022-07-07] MEDS: PERCOCET 5MG/325MG TAB PO PRN ×3 (05:48→14:53)
[2022-07-07 08:00] VITALS: BP 146/86
[2022-07-07] MEDS: MAGNESIUM OXIDE 400MG TAB (MAG-OX) PO SCH ×2 (10:26→20:20)
[2022-07-07] MEDS: POTASSIUM CHLORIDE 10MEQ SR TABLET PO SCH (10:26)
[2022-07-07 14:00] VITALS: BP 152/86
[2022-07-07] MEDS: RIVAROXABAN 20MG TAB (XARELTO) PO SCH (17:00)
[2022-07-08] MEDS: PERCOCET 5MG/325MG TAB PO PRN ×2 (01:31→08:09)
[2022-07-08] MEDS: LEVOTHYROXINE 50MCG TABLET (0.05MG) PO SCH (05:32)
[2022-07-08 06:00] VITALS: BP 149/85
[2022-07-08] MEDS ORDERED: ATIV1TAB10 PO (08:02)
[2022-07-08] MEDS ORDERED: HYOS125TA PO (08:02)
[2022-07-08] MEDS ORDERED: MORP1SOL5 PO (08:02)
[2022-07-08] MEDS: POTASSIUM CHLORIDE 10MEQ SR TABLET PO SCH (08:09)
[2022-07-08] MEDS: MAGNESIUM OXIDE 400MG TAB (MAG-OX) PO SCH (08:09)
== END 2022-07-08 10:39 | DRG 640 ==
LOC: M ED 10:17 → M ED INP 15:05 → ENRESERV 16:50 → M PCU 18:14 → M MSPAV 07-04 15:58
PROVIDERS: ADMIT Internal Medicine; ATTEND Student in an Organized Health Care Education/Training Program
DX: E83.52 Hypercalcemia (principal); G93.41 Metabolic encephalopathy; C79.89 Secondary malignant neoplasm of other specified sites; E87.1 Hypo-osmolality and hyponatremia; C79.51 Secondary malignant neoplasm of bone; I48.91 Unspecified atrial fibrillation; K21.9 Gastro-esophageal reflux disease without esophagitis; C50.919 Malignant neoplasm of unspecified site of unspecified female breast; M81.0 Age-related osteoporosis without current pathological fracture; Z66 Do not resuscitate; E83.42 Hypomagnesemia; E03.9 Hypothyroidism, unspecified; R60.0 Localized edema; D64.9 Anemia, unspecified; R00.1 Bradycardia, unspecified; G89.29 Other chronic pain; Z86.711 Personal history of pulmonary embolism; Z96.651 Presence of right artificial knee joint; Z90.13 Acquired absence of bilateral breasts and nipples; Z79.01 Long term (current) use of anticoagulants; Z90.710 Acquired absence of both cervix and uterus; Z90.49 Acquired absence of other specified parts of digestive tract; Z79.890 Hormone replacement therapy; Z79.899 Other long term (current) drug therapy; Z88.5 Allergy status to narcotic agent; Z88.1 Allergy status to other antibiotic agents; Z88.8 Allergy status to other drugs, medicaments and biological substances

== ENCOUNTER → 2022-06-28 | Outpatient (CLI) | payer BC ==
[~2022-06-28] VITALS: Ht 152.4 cm; Wt 80.0 kg
[~2022-06-28] MED LIST changes: +HYDR-3713 PO; +IBUP-1114 PO; +LEVO25TA5 PO; +MORP15TA2 PO; +SENN-80 PO
[2022-06-28 09:16] VITALS: BP 106/62
== END ==
LOC: M PAL 08:03
PROVIDERS: ATTEND Nurse Practitioner Adult Health
DX: C50.911 Malignant neoplasm of unspecified site of right female breast (principal); C79.51 Secondary malignant neoplasm of bone; C79.2 Secondary malignant neoplasm of skin; Z51.5 Encounter for palliative care; Z66 Do not resuscitate; G89.3 Neoplasm related pain (acute) (chronic); Z79.891 Long term (current) use of opiate analgesic; Z79.890 Hormone replacement therapy; Z79.899 Other long term (current) drug therapy; Z88.1 Allergy status to other antibiotic agents; Z88.5 Allergy status to narcotic agent; Z88.8 Allergy status to other drugs, medicaments and biological substances